=== PATIENT | female | born 1995 | race Caucasian/White ===

== ENCOUNTER 2016-12-11 22:53 | Emergency (ER) | payer SELFPAY ==
[2016-12-11] MEDS ORDERED: NS 1,000 ML IV ONE (22:58)
--- NOTE | 2016-12-11 23:02 | EDPHY ---
H & P HPI/ROS: HPI CHIEF COMPLAINT: Alcohol intoxication, marijuana intoxication, questionable syncope HISTORY OF PRESENT ILLNESS: This patient very pleasant 21-year-old female, she presents emergency room by EMS after she was at a concert this evening she had alcohol to drink and according to EMS 3-4 drinks, smokes marijuana, unknown if there was any other ingestion. She was found vomiting in the bathroom they called 911 and EMS arrived and evaluated her and during transport and evaluation she appeared to have 2-3 syncopal episodes in the stretcher with eye rolling and horizontal beating nystagmus. Currently upon arrival to the emergency room she is mentating appropriately however she is highly intoxicated with alcohol she smells of alcohol she has horizontal beating nystagmus consistent with acute alcohol intoxication, she moves everything appropriately. No reported trauma. Unknown if there was another ingestion. Past Medical History:No significant medical history Past Surgical History: No significant surgical history Social History: Unknown at this time but endorses alcohol this evening marijuana, lives in [facility] Family History: noncontributory ROS REVIEW OF SYSTEMS: A comprehensive 10 point review of systems is otherwise negative aside from elements mentioned in the history of present illness. Exam Constitutional intoxicated with alcohol, smells of alcohol, slurring speech, horizontal beating nystagmus triage nursing summary reviewed, vital signs reviewed, awake/alert. Eyes normal conjunctivae and sclera, horizontal beating nystagmus. HENT normal inspection, atraumatic, moist mucus membranes, no epistaxis, neck supple/ no meningismus, no raccoon eyes. Respiratory clear to auscultation bilaterally, normal breath sounds, no respiratory distress, no wheezing. Cardiovascular rate normal, regular rhythm, no murmur, no edema, distal pulses normal. Gastrointestinal soft, non-tender, no rebound, no guarding, normal bowel sounds, no distension, no pulsatile mass. Genitourinary no CVA tenderness. Musculoskeletal no midline vertebral tenderness, full range of motion, no calf swelling, no tenderness of extremities, no meningismus, good pulses, neurovascularly intact. Skin pink, warm, & dry, no rash, skin atraumatic. Neurologic Slurring his speech, toxic and alcohol, follows commands, moves all extremities sleepy Heme/Lymph/Immune no lymphadenopathy. Differential Diagnosis: Includes but is not limited to in a particular order acute alcohol intoxication, marijuana intoxication, electrolyte disturbance, dehydration, cardiac arrhythmia, syncope, vasovagal syncope, orthostatic syncope Medical Decision Making: Plan for this patient be placed on full ict help desk technician she will have an IV established obtain blood work, patient had an EKG, gentle hydration with IV normal saline, and re-evaluation. Re-evaluation: CT scan of the head without IV contrast for trauma The results of the study are negative for acute abnormality specifically no subdural, epidural traumatic subarachnoid The study was read by Dr. Rivers I viewed the images myself on the PACS system. EKG: time of EKG 12/03/1933, this is sinus rhythm, rate of 83. there is some motion artifact seen in inferior leads to a shaking, otherwise no acute ischemic changes. Intervals are appropriate. No signs of cardiac arrhythmia. 0327AM: Re-evaluation at this time this patient is resting comfortably she is now alert awake, speaking coherently. Her alcohol level was noted to be elevated. She also had an elevated lactic acid she did receive 2 L of fluid. There is no evidence that she has any signs of sepsis. Afebrile no leukocytosis. This time she has no complaints. She is mentating appropriately. She did have a CT scan of her head. She ambulated well throughout the emergency room p. o. challenge without any vomiting. She is now clinically sober and safe for discharge. Unclear if she actually had a seizure versus alcohol intoxication drug screen pending. No indication that she had a seizure no bowel bladder continence, no biting of the tongue, most likely this is dehydration with alcohol intoxication. 0354: Repeat lactic acid and less than 2. Urine drug screen pending. She ambulated well no complaints safe for discharge. Source: Patient, EMS Constitutional: Initial Vital Signs Temperature (C) 36.4 C 12/11/16 23:17 Heart Rate 85 12/11/16 23:17 Respiratory Rate 12 12/11/16 23:17 Blood Pressure 147/74 H 12/11/16 23:17 O2 Sat (%) 97 12/11/16 23:17 O2 Delivery Mode Room Air Allergies/Adverse Reactions: No Known Allergies Allergy (Unverified 12/11/16 23:17) Home Medications: Medication Instructions Recorded Zoloft 100mg (*) 12/11/16 Medical Decision Making - Data Points Laboratory Results: Laboratory Results 12/11/16 22:50 12/11/16 22:50 12/12/16 12/12/16 12/12/16 03:40 03:35 00:20 WBC RBC Hgb Hct MCV MCH MCHC RDW Plt Count MPV Neut % (Auto) Lymph % (Auto) [place] % (Auto) Eos % (Auto) Baso % (Auto) Nucleat RBC Rel Count Absolute Neuts (auto) Absolute Lymphs (auto) Absolute Monos (auto) Absolute Eos (auto) Absolute Basos (auto) Absolute Nucleated RBC Immature Gran % Immature Gran # PT INR VBG Lactic Acid 1.6 mmol/L D mmol/L 2.8 mmol/L H mmol/L (0.7-2.1) (0.7-2.1) Sodium Potassium Chloride Carbon Dioxide Anion Gap BUN Creatinine Estimated GFR Glucose Calcium Total Bilirubin Conjugated Bilirubin Unconjugated Bilirubin AST ALT Alkaline Phosphatase Troponin I Total Protein Albumin Lipase Beta HCG, Qual Urine Color PALE YELLOW Urine Appearance CLEAR Urine pH 6.0 (5.0-7.5) Ur Specific [place] 1.005 (1.002-1.030) Urine Protein NEGATIVE (NEGATIVE) Urine Ketones NEGATIVE (NEGATIVE) Urine Blood NEGATIVE (NEGATIVE) Urine Nitrate NEGATIVE (NEGATIVE) Urine Bilirubin NEGATIVE (NEGATIVE) Urine Urobilinogen NEGATIVE EU EU (0.2-1.0) Ur Leukocyte Esterase NEGATIVE (NEGATIVE) Ur Culture Indicated? NOT INDICATED (NI) Urine Glucose NEGATIVE (NEGATIVE) Urine Opiates Screen Pending Urine Barbiturates Pending Ur Phencyclidine Scrn Pending Ur Amphetamine Screen Pending U Benzodiazepines Scrn Pending Urine Cocaine Screen Pending U Marijuana (THC) Screen Pending Ethyl Alcohol 12/11/16 12/11/16 12/11/16 22:50 22:50 22:50 WBC RBC Hgb Hct MCV MCH MCHC RDW Plt Count MPV Neut % (Auto) Lymph % (Auto) [place] % (Auto) Eos % (Auto) Baso % (Auto) Nucleat RBC Rel Count Absolute Neuts (auto) Absolute Lymphs (auto) Absolute Monos (auto) Absolute Eos (auto) Absolute Basos (auto) Absolute Nucleated RBC Immature Gran % Immature Gran # PT INR VBG Lactic Acid 3.3 mmol/L H mmol/L (0.7-2.1) Sodium 139 mEq/L mEq/L (134-144) Potassium 3.6 mEq/L mEq/L (3.5-5.2) Chloride 101 mEq/L mEq/L (97-110) Carbon Dioxide 22 mEq/l mEq/l (22-31) Anion Gap 16 mEq/L mEq/L (8-16) BUN 13 mg/dL mg/dL (7-23) Creatinine 0.7 mg/dL mg/dL (0.6-1.0) Estimated GFR > 60 Glucose 125 mg/dL H mg/dL (70-100) Calcium 9.2 mg/dL mg/dL (8.5-10.4) Total Bilirubin 0.4 mg/dL mg/dL (0.1-1.4) Conjugated Bilirubin 0.4 mg/dL mg/dL (0.0-0.5) Unconjugated Bilirubin 0.0 mg/dL mg/dL (0.0-1.1) AST 24 IU/L IU/L (14-46) ALT 28 IU/L IU/L (9-52) Alkaline Phosphatase 54 IU/L IU/L (38-126) Troponin I < 0.012 ng/mL ng/mL (0-0.034) Total Protein 7.5 g/dL g/dL (6.3-8.2) Albumin 4.6 g/dL g/dL (3.5-5.0) Lipase 186.0 IU/L IU/L (23-300) Beta HCG, Qual NEGATIVE Urine Color Urine Appearance Urine pH Ur Specific [place] Urine Protein Urine Ketones Urine Blood Urine Nitrate Urine Bilirubin Urine Urobilinogen Ur Leukocyte Esterase Ur Culture Indicated? Urine Glucose Urine Opiates Screen Urine Barbiturates Ur Phencyclidine Scrn Ur Amphetamine Screen U Benzodiazepines Scrn Urine Cocaine Screen U Marijuana (THC) Screen Ethyl Alcohol 170 mg/dL H mg/dL (0-10) 12/11/16 12/11/16 22:50 22:50 WBC 9.57 10^3/uL H 10^3/uL (3.80-9.50) RBC 5.07 10^6/uL 10^6/uL (4.18-5.33) Hgb 16.6 g/dL H g/dL (12.6-16.3) Hct 47.0 % % (38.0-47.0) MCV 92.7 fL fL (81.5-99.8) MCH 32.7 pg pg (27.9-34.1) MCHC 35.3 g/dL g/dL (32.4-36.7) RDW 11.7 % % (11.5-15.2) Plt Count 268 10^3/uL 10^3/uL (150-400) MPV 10.4 fL fL (8.7-11.7) Neut % (Auto) 34.3 % L % (39.3-74.2) Lymph % (Auto) 56.2 % H % (15.0-45.0) [place] % (Auto) 4.4 % L % (4.5-13.0) Eos % (Auto) 4.1 % % (0.6-7.6) Baso % (Auto) 0.6 % % (0.3-1.7) Nucleat RBC Rel Count 0.0 % % (0.0-0.2) Absolute Neuts (auto) 3.28 10^3/uL 10^3/uL (1.70-6.50) Absolute Lymphs (auto) 5.38 10^3/uL H 10^3/uL (1.00-3.00) Absolute Monos (auto) 0.42 10^3/uL 10^3/uL (0.30-0.80) Absolute Eos (auto) 0.39 10^3/uL 10^3/uL (0.03-0.40) Absolute Basos (auto) 0.06 10^3/uL 10^3/uL (0.02-0.10) Absolute Nucleated RBC 0.00 10^3/uL 10^3/uL (0-0.01) Immature Gran % 0.4 % % (0.0-1.1) Immature Gran # 0.04 10^3/uL 10^3/uL (0.00-0.10) PT 12.4 SEC SEC (12.0-15.0) INR 0.93 (0.83-1.16) VBG Lactic Acid Sodium Potassium Chloride Carbon Dioxide Anion Gap BUN Creatinine Estimated GFR Glucose Calcium Total Bilirubin Conjugated Bilirubin Unconjugated Bilirubin AST ALT Alkaline Phosphatase Troponin I Total Protein Albumin Lipase Beta HCG, Qual Urine Color Urine Appearance Urine pH Ur Specific [place] Urine Protein Urine Ketones Urine Blood Urine Nitrate Urine Bilirubin Urine Urobilinogen Ur Leukocyte Esterase Ur Culture Indicated? Urine Glucose Urine Opiates Screen Urine Barbiturates Ur Phencyclidine Scrn Ur Amphetamine Screen U Benzodiazepines Scrn Urine Cocaine Screen U Marijuana (THC) Screen Ethyl Alcohol Medications Given: Discontinued Medications Sodium Chloride (Ns) 1,000 mls @ 0 mls/hr IV ONCE ONE PRN Reason: Wide Open Stop: 12/11/16 22:59 Last Admin: 12/11/16 23:17 Dose: 1,000 mls Sodium Chloride (Ns) 1,000 mls @ 0 mls/hr IV ONCE ONE PRN Reason: Wide Open Stop: 12/12/16 00:12 Last Admin: 12/12/16 00:21 Dose: 1,000 mls Departure - Departure Disposition: Home, Routine, Self-Care Clinical Impression: Alcohol intoxication Qualifiers: Complication of substance-induced condition: uncomplicated Qualified Code(s): F10.120 - Alcohol abuse with intoxication, uncomplicated Condition: Good Instructions: Alcohol Intoxication (ED) Referrals: Patient,NotPresent [Unknown] - As per Instructions
[2016-12-11 23:15] LABS: % IMMATURE GRANULYOCYTES 0.4 % (0.0-1.1); ABSOLUTE IMMATURE GRANULOCYTES 0.04 10^3/uL (0.00-0.10); ADD DIFF? NO; ADD MORPH? NO; ADD SCAN? NO; ATYPICAL LYMPHOCYTE FLAG 20 (0-99); FRAGMENT RBC FLAG 0 (0-99); HEMOGLOBIN 16.6 g/dL (12.6-16.3); LEFT SHIFT FLG 0 (0-99); LIPEMIA HEMOLYSIS FLAG 90 (0-99); MEAN CELL HEMOGLOBIN 32.7 pg (27.9-34.1); MEAN CELL HEMOGLOBIN CONCENTR. 35.3 g/dL (32.4-36.7); MEAN CELL VOLUME 92.7 fL (81.5-99.8); MEAN PLATELET VOLUME 10.4 fL (8.7-11.7); PLATELET CLUMPS FLAG 10 (0-99); PLATELET COUNT 268 10^3/uL (150-400); RED BLOOD CELL COUNT 5.07 10^6/uL (4.18-5.33); RED CELL DISTRIBUTION WIDTH 11.7 % (11.5-15.2)
[2016-12-11 23:21] LABS: INR 0.93 (0.83-1.16); PROTIME(PATIENT) 12.4 SEC (12.0-15.0)
[2016-12-11 23:22] LABS: ALANINE AMINOTRANSFERASE 28 IU/L (9-52); ALBUMIN 4.6 g/dL (3.5-5.0); ALKALINE PHOSPHATASE 54 IU/L (38-126); ANION GAP 16 mEq/L (8-16); ASPARTATE AMINOTRANSFERASE 24 IU/L (14-46); BILIRUBIN,TOTAL 0.4 mg/dL (0.1-1.4); BILIRUBIN-CONJUGATED 0.4 mg/dL (0.0-0.5); CALCIUM 9.2 mg/dL (8.5-10.4); CARBON DIOXIDE 22 mEq/l (22-31); CHLORIDE 101 mEq/L (97-110); CREATININE 0.7 mg/dL (0.6-1.0); GLOMERULAR FILTRATION RATE > 60; GLUCOSE 125 mg/dL (70-100); POTASSIUM 3.6 mEq/L (3.5-5.2); SODIUM 139 mEq/L (134-144); TOTAL PROTEIN 7.5 g/dL (6.3-8.2)
[2016-12-11 23:33] LABS: TROPONIN I < 0.012 ng/mL (0-0.034)
--- NOTE | 2016-12-11 23:34 | CPEKG ---
Heart Rate: 83 RR Interval: 723 P-R Interval: 186 QRSD Interval: 96 QT Interval: 396 QTC Interval: 466 P [place]: 57 QRS [place]: 70 T Wave [place]: 47 EKG Severity - OTHERWISE NORMAL ECG - EKG Impression: SINUS TACHYCARDIA EKG Impression: VENTRICULAR PREMATURE COMPLEX Electronically Signed By: Keaton Bunch 12-Dec-2016 06:30:50
[2016-12-11 23:35] LABS: ETHANOL SERUM 170 mg/dL (0-10)
[2016-12-11 23:53] VITALS: TEMP 97.5
[2016-12-12] MEDS ORDERED: NS 1,000 ML IV ONE (00:11)
[2016-12-12 03:49] LABS: COLOR PALE YELLOW; LEUKOCYTE ESTERASE,URINE NEGATIVE (NEGATIVE); NITRITE,URINE NEGATIVE (NEGATIVE)
[2016-12-12 04:06] VITALS: BP 124/97; PULSE 87; RESP 16; O2SAT 96
== END 2016-12-12 04:07 | disposition home or self-care (01) ==
DX: F10.120 Alcohol abuse with intoxication, uncomplicated (principal)
CPT/HCPCS: 80305; G0480